=== PATIENT | male | born 1965 | race Caucasian/White ===

== ENCOUNTER 2020-08-27 13:47 | Emergency (ER) | payer OTHER ==
[~2020-08-27] VITALS: Ht 175.3 cm; Wt 99.8 kg
[2020-08-27 14:22] LABS: ABSOLUTE EOSINOPHILS 0.2 thou/uL (0.0-0.7); ABSOLUTE LYMPHOCYTES 1.9 thou/uL (0.8-5.3); ABSOLUTE MONOCYTES 0.3 thou/uL (0.0-1.2); ABSOLUTE NEUTROPHILS 4.9 thou/uL (1.6-8.1); BASOPHILS 0.6 %; HEMATOCRIT 40.5 % (42.0-52.0); HEMOGLOBIN 13.3 gm/dL (14.0-18.0); LYMPHOCYTES 25.4 %; MCH 28.4 pg (26.0-34.0); MCHC 32.9 g/dL (28.0-37.0); MCV 86.4 fL (80.0-100.0); MONOCYTES 3.4 %; MPV 6.5 fl. (7.2-11.1); NUCLEATED RBCS 0 /100WBC; PLATELET COUNT* 359 thou/uL (150-400); POLYS 67.6 %; RBC 4.69 mil/uL (4.50-6.00); RDW-CV 13.8 % (10.5-14.5); WBC 7.3 thou/uL (4.0-11.0)
[2020-08-27 14:31] LABS: CALCIUM 9.2 mg/dL (8.5-10.1); CREATININE 1.5 mg/dL (0.6-1.3); POTASSIUM 3.5 mmol/L (3.5-5.1); TOTAL BILIRUBIN 0.5 mg/dL (<0.1-1.0); TOTAL PROTEIN 7.3 g/dL (6.4-8.2)
[2020-08-27 14:43] LABS: URINE BILIRUBIN NEGATIVE (Negative); URINE BLOOD 3+ (Negative); URINE CLARITY CLEAR; URINE COLOR YELLOW; URINE GLUCOSE-RANDOM 1+ (Negative); URINE KETONES NEGATIVE (Negative); URINE LEUKOCYTES-REFLEX NEGATIVE (Negative); URINE NITRITE-REFLEX NEGATIVE (Negative); URINE PROTEIN NEGATIVE (Negative); URINE SPECIFIC GRAVITY >= 1.030 (1.005-1.030); URINE UROBILINOGEN 0.2 E.U./dl (0.2-1.0)
[2020-08-27 14:49] LABS: SQUAMOUS 0-3 Few /LPF (0-3); URINE RBC 3-10 Few /HPF (0-2); URINE WBC-REFLEX None Seen /HPF (0-5)
[2020-08-27 14:50] LABS: BACTERIA-REFLEX >30 Many /HPF (None Seen); CASTS None Seen /LPF (None Seen); CRYSTALS None Seen /LPF (None Seen); MUCUS >6 Heavy strn/LPF (None Seen)
[2020-08-27] MEDS ORDERED: FLOMAX0.4 MG PO (15:44)
[2020-08-27] MEDS ORDERED: NORCO 5-325 TA1 EAC2 PO (15:44)
[2020-08-27] MEDS ORDERED: IBUPROFEN 800800 M1 PO (15:44)
[2020-08-27] MEDS ORDERED: ONDANSETRON HCL4 M2 PO (15:45)
[2020-08-27 16:00] VITALS: BP 144/54
--- NOTE | 2020-08-27 16:42 | EKG ---
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1965 Requested By: Na Roque Order Number: [id number] MD: Yemi Nice Measurements Intervals [place] Rate: 63 P: 48 ME: 181 QRS: 29 QRSD: 95 T: 53 QT: 390 QTc: 400 Interpretive Statements Sinus rhythm Abnormal R-wave progression, early transition Baseline wander in lead(s) V3 Compared to ECG 01/30/2007 07:03:35 No significant changes Electronically Signed On 08-27-2020 16:42:16 CDT by Yemi Nice [email or web address] <ELECTRONICALLY SIGNED> By: Yemi Nice MD, FAC 08/27/20 1642 1418 1418 Yemi Nice MD, [facility] /EPI
== END 2020-08-27 16:03 | disposition home or self-care (01) ==
LOC: M.ERS 13:47
PROVIDERS: Nurse Practitioner Family
DX: N21.0 Calculus in bladder (principal); R73.9 Hyperglycemia, unspecified